=== PATIENT | female | born 1965 | race Caucasian/White ===

== ENCOUNTER 2022-01-29 15:04 | Day surgery (SDC) | payer OTHER ==
[2022-01-29] MEDS ORDERED: Marcaine Mpf 0.5% Vial 30 Ml IJ ONE (15:05)
[2022-01-29] MEDS ORDERED: XYLOCAINE-MPF 1% 5ML SDV IJ ONE (15:05)
[2022-01-29] MEDS ORDERED: Depo-Medrol 40 MG/ML IM ONE (15:05)
--- NOTE | 2022-01-29 17:32 | XRAY ---
Indication: Bilateral SI joint injection. Intraoperative fluoroscopy provided for 17 seconds. 5 digital spot image submitted for interpretation demonstrates posterior needle tip projecting over the inferior left and right SI joint. Correlate with intraoperative findings/report.
--- NOTE | 2022-01-29 17:36 | XRAY ---
17 seconds of fluoroscopy was used in surgery for bilateral SI joints injections.
== END 2022-01-29 17:07 | disposition home or self-care (01) ==
LOC: SDC-PAIN 15:04
PROVIDERS: ATTEND Psychiatry & Neurology Pain Medicine
DX: M46.1 Sacroiliitis, not elsewhere classified (principal)
CPT/HCPCS: 27096; 72202; 77002; 81025; G0260; J1030

== ENCOUNTER 2022-01-29 19:23 | Emergency (ER) | payer OTHER ==
--- NOTE | 2022-01-29 19:39 | ERPHSYRPT ---
- History of Present Illness Time Seen by Provider: 01/29/22 19:30 Historian: patient Physician History: Patient is a 56-year-old female presents to emergency department via EMS for evaluation of chest pain. Patient received 324 mg of aspirin in route. Patient was participating in a tug-of-war event at [employer] when she developed sharp chest pain. Chest pain was localized to the substernal region. No radiation. No associated numbness tingling or weakness. No trauma. No fever. Patient states the chest pain has resolved. Patient feels a slight heaviness in her chest at this time. She otherwise feels well. Patient was at an outside hospital for similar symptoms. Patient had a work-up including echocardiogram and was told all was normal. No associated nausea vomiting or diaphoresis. Patient has no other complaints at this time. Timing/Duration: today Activities at Onset: activity Quality: pressure, sharpness Location: substernal Chest Pain Radiation: no radiation Severity of Pain-Max: moderate Severity of Pain-Current: mild Modifying Factors: Improves With: nothing Associated Symptoms: denies symptoms Prior Chest Pain/Cardiac Workup: echocardiography Nitro Today/Relief: no nitro taken today Aspirin Treatment Today: 81 mg x 4 Allergies/Adverse Reactions: promethazine [From Phenergan] Allergy (Intermediate, Verified 01/29/22 19:48) Itching Home Medications: Escitalopram Oxalate [Lexapro] 20 mg PO DAILY 01/29/22 [History] Metoprolol Tartrate 25 mg [Lopressor 25MG Tab] 25 mg PO BID 01/29/22 [History] Pregabalin 200 mg PO TID 01/29/22 [History] - Review of Systems Constitutional: No Symptoms, No Fever, No Chills Eyes: No Symptoms Ears, Nose, & Throat: No Symptoms Respiratory: No Symptoms, No Cough, No Dyspnea Cardiac: No Symptoms, No Chest Pain, No Edema, No Syncope Abdominal/Gastrointestinal: No Symptoms, No Abdominal Pain, No Nausea, No Vomiting, No Diarrhea Genitourinary Symptoms: No Symptoms, No Dysuria Musculoskeletal: No Symptoms, No Back Pain, No Neck Pain Skin: No Symptoms, No Rash Neurological: No Symptoms, No Dizziness, No Focal Weakness, No Sensory Changes Psychological: No Symptoms Endocrine: No Symptoms Hematologic/Lymphatic: No Symptoms Immunological/Allergic: No Symptoms All Other Systems: Reviewed and Negative - Nursing Vital Signs Nursing Vital Signs: Initial Vital Signs Temperature 97.9 F 01/29/22 19:24 Pulse Rate 77 01/29/22 19:24 Respiratory Rate 16 01/29/22 19:24 Blood Pressure 161/101 01/29/22 19:24 O2 Sat by Pulse Oximetry 96 01/29/22 19:24 Pain Scale Pain Intensity 2 - Physical Exam General Appearance: no apparent distress, alert Eye Exam: PERRL/EOMI, eyes nml inspection Ears, Nose, Throat Exam: normal ENT inspection, TMs normal, pharynx normal, moist mucous membranes Neck Exam: normal inspection, non-tender, supple, full range of motion Respiratory Exam: normal breath sounds, lungs clear, airway intact, No respiratory distress Cardiovascular Exam: regular rate/rhythm, normal heart sounds, normal peripheral pulses Gastrointestinal/Abdomen Exam: soft, normal bowel sounds, No tenderness, No mass Back Exam: normal inspection, No CVA tenderness, No vertebral tenderness Extremity Exam: normal inspection, normal range of motion Neurologic Exam: alert, oriented x 3, cooperative, normal mood/affect, sensation nml, No motor deficits Skin Exam: normal color, warm, dry Lymphatic Exam: No adenopathy SpO2 Interpretation: normal O2 Delivery: Room Air - Course Nursing assessment & vital signs reviewed: Yes EKG Interpreted by Me: RATE (68), Sinus Rhythm, NORMAL AXIS, NORMAL INTERVALS - Radiology Exams Chest X-ray Interpretation: Interpreted by me (Clear lung ordaz. No consolidation or infiltrate. Normal cardiac silhouette. Intact bony thorax. Osteopenia) Ordered Tests: Active Orders 24 hr Category Date Time Status Construction Administrator STAT Care 01/29/22 19:27 Active EKG-ER Only STAT Care 01/29/22 19:26 Active IV Insertion STAT Care 01/29/22 19:26 Active Pulse Oximetry (ED) STAT Care 01/29/22 19:26 Active CHEST 1 VIEW (PORTABLE) Stat Exams 01/29/22 19:27 Taken CBC W DIFF Stat Lab 01/29/22 19:45 Completed CMP Stat Lab 01/29/22 19:45 Completed NT PRO BNP Stat Lab 01/29/22 19:45 Completed TROPONIN Q3H Lab 01/29/22 19:45 Completed TROPONIN Q3H Lab 01/29/22 22:25 Completed TROPONIN Q3H Lab 01/30/22 01:30 Ordered TROPONIN Q3H Lab 01/30/22 04:30 Ordered TROPONIN Q3H Lab 01/30/22 07:30 Ordered Lab/Rad Data: Laboratory Result Diagrams 01/29/22 19:45 01/29/22 19:45 Laboratory Results 01/29/22 01/29/22 01/29/22 Range/Units 22:25 19:59 19:45 WBC (4.0-10.5) x10^3/uL RBC (4.1-5.4) x10^6/uL Hgb (12.0-16.0) g/dL Hct (35-47) % MCV (78-100) fL MCH (26-32) pg MCHC (32-36) g/dL RDW (11.5-14.0) % Plt Count (150-450) x10^3/uL MPV (7.5-11.0) fL Gran % (36.0-66.0) % Immature Gran % (Auto) (0.00-0.4) % Nucleat RBC Rel Count (0.00-0.1) % Eos # (Auto) (0-0.5) x10^3/uL Immature Gran # (Auto) (0.00-0.03) x10^3u/L Absolute Lymphs (auto) (1.0-4.6) x10^3/uL Absolute Monos (auto) (0.0-1.3) x10^3/uL Absolute Nucleated RBC (0.00-0.01) x10^3u/L Lymphocytes % (24.0-44.0) % Monocytes % (0.0-12.0) % Eosinophils % (0.00-5.0) % Basophils % (0.0-0.4) % Absolute Granulocytes (1.4-6.9) x10^3/uL Basophils # (0-0.4) x10^3/uL Sodium (137-145) mmol/L Potassium (3.5-5.1) mmol/L Chloride (98-107) mmol/L Carbon Dioxide (22-30) mmol/L Anion Gap (5-15) MEQ/L BUN (7-17) mg/dL Creatinine (0.52-1.04) mg/dL Estimated GFR ML/MIN Glucose (74-106) mg/dL Calcium (8.4-10.2) mg/dL Total Bilirubin (0.2-1.3) mg/dL AST (14-36) U/L ALT (0-35) U/L Alkaline Phosphatase (38-126) U/L Troponin I < 0.012 < 0.012 (0.000-0.034) ng/mL NT-Pro-B Natriuret Pep (0-900) pg/mL Serum Total Protein (6.3-8.2) g/dL Albumin (3.5-5.0) g/dL Influenza Type A Ag NEGATIVE (NEGATIVE) Influenza Type B Ag NEGATIVE (NEGATIVE) RSV (PCR) NEGATIVE (Negative) SARS-CoV-2 (PCR) NEGATIVE (NEGATIVE) 01/29/22 01/29/22 Range/Units 19:45 19:45 WBC 5.8 (4.0-10.5) x10^3/uL RBC 4.53 (4.1-5.4) x10^6/uL Hgb 12.5 (12.0-16.0) g/dL Hct 39.7 (35-47) % MCV 87.6 (78-100) fL MCH 27.6 (26-32) pg MCHC 31.5 L (32-36) g/dL RDW 13.2 (11.5-14.0) % Plt Count 225 (150-450) x10^3/uL MPV 11.5 H (7.5-11.0) fL Gran % 65.1 (36.0-66.0) % Immature Gran % (Auto) 0.2 (0.00-0.4) % Nucleat RBC Rel Count 0.0 (0.00-0.1) % Eos # (Auto) 0.24 (0-0.5) x10^3/uL Immature Gran # (Auto) 0.01 (0.00-0.03) x10^3u/L Absolute Lymphs (auto) 1.35 (1.0-4.6) x10^3/uL Absolute Monos (auto) 0.40 (0.0-1.3) x10^3/uL Absolute Nucleated RBC 0.00 (0.00-0.01) x10^3u/L Lymphocytes % 23.1 L (24.0-44.0) % Monocytes % 6.8 (0.0-12.0) % Eosinophils % 4.1 (0.00-5.0) % Basophils % 0.7 (0.0-0.4) % Absolute Granulocytes 3.80 (1.4-6.9) x10^3/uL Basophils # 0.04 (0-0.4) x10^3/uL Sodium 138 (137-145) mmol/L Potassium 4.3 (3.5-5.1) mmol/L Chloride 107 (98-107) mmol/L Carbon Dioxide 23 (22-30) mmol/L Anion Gap 11.7 (5-15) MEQ/L BUN 15 (7-17) mg/dL Creatinine 0.79 (0.52-1.04) mg/dL Estimated GFR > 60.0 ML/MIN Glucose 98 (74-106) mg/dL Calcium 8.9 (8.4-10.2) mg/dL Total Bilirubin 0.40 (0.2-1.3) mg/dL AST 24 (14-36) U/L ALT 16 (0-35) U/L Alkaline Phosphatase 72 (38-126) U/L Troponin I (0.000-0.034) ng/mL NT-Pro-B Natriuret Pep 152 (0-900) pg/mL Serum Total Protein 6.8 (6.3-8.2) g/dL Albumin 3.6 (3.5-5.0) g/dL Influenza Type A Ag (NEGATIVE) Influenza Type B Ag (NEGATIVE) RSV (PCR) (Negative) SARS-CoV-2 (PCR) (NEGATIVE) - Progress Progress: improved Air Movement: good Progress Note: +2 - Low Score. Risk of major cardiac event in next six weeks is 0.9 to 1.7%, based on the Any et al HEART score 2013 validation study. 01/29/22 21:14 Patient reassessed. She feels well. No pain or discomfort. Chest x-ray nonremarkable. EKG normal sinus rhythm. No ischemic changes observed. Troponin negative x2. Heart score shows patient to be low risk. Patient requesting discharge. Patient agrees to follow-up with primary care doctor within 48 hours. Portions of this note were created with voice recognition technology. There may be grammatical, spelling, punctuation or sound alike errors 01/29/22 23:19 Blood Culture(s) Obtained: No Antibiotics given: No Counseled pt/family regarding: lab results, diagnosis, rad results - Departure Departure Disposition: Home Clinical Impression: Chest pain Condition: Stable Critical Care Time: No Referrals: RALPH WALDROP MD [Primary Care Provider] - Follow up/PCP as directed Additional Instructions: Discharge/Care Plan GEOVANY SCHULER was seen on 01/29/22 in the Emergency Room. The patient was counseled regarding Diagnosis,Lab results, Imaging studies, need for follow up and when to return to the Emergency Room. Prescriptions given: Discharge Note I have spoken with the patient and/or caregivers. I have explained the patient's condition, diagnosis and treatment plan based on the information available to me at this time. I have answered the patient's and/or caregiver's questions and addressed any concerns. The patient and/or caregivers have as good understanding of the patient's diagnosis, condition and treatment plan as can be expected at t his point. The vital signs have been stable. The patient's condition is stable and appropriate for discharge from the emergency department. The patient will pursue further outpatient evaluation with the primary care physician or other designated or consulting physician as outlined in the discharge instructions. The patient and/or caregivers are agreeable to this plan of care and follow-up instructions have been explained in detail. The patient and/or caregivers have received these instruction. The patient/and or caregivers are aware that any significant change in condition or worsening of symptoms should prompt an immediate return to this or the closest emergency department or call 911.
[2022-01-29 19:51] LABS: Basophil (Absolute #) 0.04 x10^3/uL (0-0.4); Eosinophil % 4.1 % (0.00-5.0); Eosinophil (Absolute #) 0.24 x10^3/uL (0-0.5); Hematocrit 39.7 % (35-47); Hemoglobin 12.5 g/dL (12.0-16.0); Lymphocyte (Absolute #) 1.35 x10^3/uL (1.0-4.6); Lymphocytes % 23.1 % (24.0-44.0); Mean Cell Volume 87.6 fL (78-100); Mean Corpuscular Hemoglobin 27.6 pg (26-32); Mean Corpuscular Hgb Concent. 31.5 g/dL (32-36); Mean Platelet Volume 11.5 fL (7.5-11.0); Monocytes % 6.8 % (0.0-12.0); Neutrophil % 65.1 % (36.0-66.0); Platelet Count 225 x10^3/uL (150-450); Red Blood Count 4.53 x10^6/uL (4.1-5.4); Red Cell Distribution Width 13.2 % (11.5-14.0); White Blood Count 5.8 x10^3/uL (4.0-10.5)
[2022-01-29 20:18] LABS: ALBUMIN 3.6 g/dL (3.5-5.0); ALKALINE PHOSPHATASE 72 U/L (38-126); ANION GAP 11.7 MEQ/L (5-15); BLOOD UREA NITROGEN 15 mg/dL (7-17); CHLORIDE 107 mmol/L (98-107); Calcium 8.9 mg/dL (8.4-10.2); Carbon Dioxide 23 mmol/L (22-30); Creatinine 1 0.79 mg/dL (0.52-1.04); EST GLOMERULAR FILTRATION RATE > 60.0 ML/MIN; Glucose 98 mg/dL (74-106); NT PRO BNP 152 pg/mL (0-900); Potassium 4.3 mmol/L (3.5-5.1); SGOT/AST 24 U/L (14-36); SGPT/ALT 16 U/L (0-35); SODIUM 138 mmol/L (137-145); Total Protein 6.8 g/dL (6.3-8.2)
[2022-01-29 20:38] LABS: INFLUENZA A NEGATIVE (NEGATIVE); INFLUENZA B NEGATIVE (NEGATIVE); RESPIRATORY SYNCTIAL VIRUS NEGATIVE (Negative); SARS-CoV-2 Xpert Express NEGATIVE (NEGATIVE)
[2022-01-29 23:06] VITALS: BP 126/81; PULSE 63; O2SAT 96
--- NOTE | 2022-01-30 08:38 | XRAY ---
Indication: Chest pain. Comparison: None Portable chest demonstrates mild bibasilar discoid atelectasis/scarring. Remaining heart and upper lungs unremarkable. Bony thorax intact.
== END 2022-01-29 23:56 | disposition home or self-care (01) ==
LOC: ED 19:23
DX: R07.9 Chest pain, unspecified (principal)
CPT/HCPCS: 0241U; 36000; 36415; 71045; 80053; 83880; 84484; 85025; 93005; 93041; 94760; 99284

== ENCOUNTER 2022-04-02 07:54 | Day surgery (SDC) | payer OTHER ==
[2022-04-02] MEDS ORDERED: XYLOCAINE-MPF 1% 5ML SDV IJ ONE (07:55)
[2022-04-02] MEDS ORDERED: Decadron 4 MG INJ IJ ONE (07:55)
[2022-04-02] MEDS ORDERED: DIPRIVAN 200 MG/20 ML IV ONE (08:52)
[2022-04-02] MEDS ORDERED: Lactated Ringers 1,000 ML IV ONE (10:49)
--- NOTE | 2022-04-02 11:31 | XRAY ---
Indication: Bilateral piriformis injection. Intraoperative fluoroscopy provided for 34 seconds. 2 digital spot image submitted for interpretation demonstrates posterior needle tip projecting over the left and right piriformis muscles. Small amount of contrast injected for needle tip placement. Correlate with intraoperative findings/report.
--- NOTE | 2022-04-02 12:08 | XRAY ---
34 seconds of fluoroscopy was used in surgery for bilateral piriformis injections.
== END 2022-04-02 09:18 | disposition home or self-care (01) ==
LOC: SDC-PAIN 07:54
PROVIDERS: ATTEND Psychiatry & Neurology Pain Medicine
DX: M79.18 Myalgia, other site (principal); Z79.899 Other long term (current) drug therapy
CPT/HCPCS: 20552; 72170; 77002; 81025; J1100; J2704; Q9966